=== PATIENT | female | born 1975 ===

== ENCOUNTER 2021-09-18 16:07 | Outpatient (CLI) | payer BC, SELFPAY ==
[2021-09-18 18:14] LABS: SARS-CoV-2 Ag Negative (Negative)
== END 2021-09-18 16:08 | disposition home or self-care (01) ==
LOC: CHSLAB 16:13
PROVIDERS: PCP Family Medicine; Visit Provider Family Medicine
DX: Z20.822 Contact with and (suspected) exposure to COVID-19 (principal)
CPT/HCPCS: 87426; C9803